=== PATIENT | female | born 1960 | race Caucasian/White ===

== ENCOUNTER → 2020-05-30 | Outpatient (CLI) | payer OTHER ==
[~2020-05-30] MED LIST: COVID-19 VACC, MRNA(MODERNA)/PF 100 MCG/0.5 ML VIAL IM ONE
== END ==
LOC: VACCPMC 08:30
DX: Z23 Encounter for immunization (principal); Z20.822 Contact with and (suspected) exposure to COVID-19

== ENCOUNTER → 2020-07-01 | Outpatient (CLI) | payer OTHER | END | DRG 951 | LOC: VACCPMC 07:29 | DX: Z23 Encounter for immunization (principal); Z20.822 Contact with and (suspected) exposure to COVID-19 | CPT/HCPCS: 0012A; 91301 ==

== ENCOUNTER 2021-01-27 20:38 | Emergency (ER) | payer OTHER ==
[~2021-01-27] VITALS: Ht 162.6 cm; Wt 91.2 kg
[2021-01-28] MEDS ORDERED: IBUPROFEN 600 MG TAB ONE (01:19)
== END 2021-01-27 21:30 | disposition home or self-care (01) ==
LOC: FSED 20:47
DX: R50.9 Fever, unspecified (principal); R05 Cough; J06.9 Acute upper respiratory infection, unspecified
CPT/HCPCS: 83518; 87400; 99282; U0002

== ENCOUNTER 2021-01-28 00:59 | Emergency (ER) | payer OTHER ==
[~2021-01-28] VITALS: Ht 162.6 cm; Wt 91.2 kg
[2021-01-28] MEDS ORDERED: CASIRIVIMAB/IMDEVIMAB 10 ML in SODIUM CHLORIDE 0.9% 100 ML IV ONE (01:00)
[2021-01-28] MEDS ORDERED: ONDANSETRON HCL INJ 2MG/ML 2ML 2 MG/ML VIAL ONE (01:18)
[2021-01-28] MEDS ORDERED: SODIUM CHLORIDE 0.9% 100 ML ONE (01:19)
[2021-01-28] MEDS ORDERED: ONDANSETRON HCL INJ 2MG/ML 2ML 2 MG/ML VIAL IV STA (01:45)
== END 2021-01-28 03:13 | disposition home or self-care (01) ==
LOC: ER 01:09
DX: R05 Cough (principal); R53.1 Weakness; U07.1 COVID-19; M43.22 Fusion of spine, cervical region
CPT/HCPCS: 99283; J2405; J7050

== ENCOUNTER 2024-08-27 20:17 | Emergency (ER) | payer BC, OTHER ==
[~2024-08-27] VITALS: Ht 162.6 cm; Wt 88.5 kg
[~2024-08-27 20:17] MED LIST changes: -COVID-19 VACC, MRNA(MODERNA)/PF 100 MCG/0.5 ML VIAL IM ONE; +LEVOFLOXACIN750 MG PO; +PREDNISONE20 MG PO; +PROVENTIL HFA6.7 GM INH
[2024-08-27 20:34] VITALS: TEMP 97.8
[2024-08-27] MEDS: METHYLPREDNISOLONE SOD SUCC 125 MG/2ML VIAL IV ONE (21:22)
[2024-08-27] MEDS: LEVOFLOXACIN 500 MG TAB PO ONE (21:23)
[2024-08-27 21:46] VITALS: PULSE 68
[2024-08-27] MEDS ORDERED: ONDANSETRON ODT4 MG PO (21:59)
[2024-08-27] MEDS ORDERED: NASACORT16.9 ML (21:59)
[2024-08-27] MEDS ORDERED: DIPHENHYDRAMINE25 M2 PO (21:59)
[2024-08-27] MEDS ORDERED: LEVOFLOXACIN250 MG PO (21:59)
[2024-08-27] MEDS ORDERED: VENTOLIN HFA18 GM INH (21:59)
[2024-08-27 22:20] VITALS: BP 143/70; PULSE 65; RESP 20; O2SAT 97
== END 2024-08-27 22:20 | disposition home or self-care (01) ==
LOC: FSED 20:20
DX: R05.9 Cough, unspecified (principal); J20.9 Acute bronchitis, unspecified; J06.9 Acute upper respiratory infection, unspecified; I25.10 Atherosclerotic heart disease of native coronary artery without angina pectoris; Z11.52 Encounter for screening for COVID-19
CPT/HCPCS: 0223U; 71250; 80048; 82553; 83880; 84484; 85025; 85379; 87400; 93005; 94760; 99283; J0696; J2919